=== PATIENT | male | born 1935 | race Caucasian/White ===

== ENCOUNTER 2018-10-03 18:58 | Emergency (ER) | payer OTHER ==
[2018-10-03 19:04] VITALS: BMI 29.0
[2018-10-03] MEDS ORDERED: FLUORESCEIN NA 1 EA STRIP OD ONE (20:26)
--- NOTE | 2018-10-03 20:27 | PDOC ---
History of Present Illness - General Chief Complaint: Injury Stated Complaint: STRUCK IN THE RT EYE Time Seen by Provider: 10/03/18 20:25 Past History - Past Medical History Allergies/Adverse Reactions: Allergies Allergy/AdvReac Type Severity Reaction Status Date / Time Sulfa (Sulfonamide Allergy Verified 10/03/18 21:05 Antibiotics) Home Medications: Ambulatory Orders Amlodipine Besylate 10/03/18 Aspirin [ASA -] 81 mg PO DAILY 10/03/18 Lovastatin 10/03/18 Ramipril 10/03/18 Cardiac Disorders: Yes ([place]) COPD: No HTN: Yes Hypercholesterolemia: Yes - Surgical History Abdominal Surgery: Yes (Colon resection for colon CA) Cardiac Surgery: Yes (Aortic Valve Replacement w/ Bovine) Orthopedic Surgery: Yes (L TKR) - Suicide/Smoking/Psychosocial Hx Smoking History: Never smoked Review of Systems - Review of Systems Able to Perform ROS?: Yes Comments:: In addition to that documented in the HPI above, the additional ROS was obtained : Constitutional: Denies fevers or chills ENMT: Per HPI CV: Denies chest pain Resp: Denies SOB GI: Denies vomiting or diarrhea : Denies dysuria, hematuria, or urinary frequency *Physical Exam - Vital Signs Last Vital Signs Temp Pulse Resp BP Pulse Ox 97.3 F L 65 18 142/61 99 10/03/18 18:59 10/03/18 18:59 10/03/18 18:59 10/03/18 18:59 10/03/18 18:59 - Physical Exam Comments: Constitutional: Well-developed, well-nourished elderly adult male in no acute distress but obvious discomfort. Found semi-fowlers on hospital bed. Alert and oriented x4. Answered all questions appropriately and completely. Speech was non -labored, non-pressured. Head: Normocephalic. No tenderness to area surrounding R orbit. Eyes: Blood noted in right eye. No hyphema. Two inferior corneal lacerations which fluorescein update. EOMI. R pupil 5mm and nonreactive. L pupil 3mm and reactive to light. No consensual response in left eye. Ears: Hearing grossly intact. Nose: No nasal discharge. Neck: Supple, trachea is midline. No JVD or thyromegaly. Cardiovascular / Chest: Peripheral pulses: radial pulses full. Respiratory: Breathing unlabored. Equal chest rise and fall. Neuro: Alert and oriented. Moving all four extremities spontaneously. Skin: Warm, dry, and intact. Psych: Affect: appropriate. Mood: normal. Moderate Sedation - Procedure Monitoring Vital Signs: Procedure Monitoring Vital Signs Temperature 97.3 F L 10/03/18 18:59 Pulse Rate 65 10/03/18 18:59 Respiratory Rate 18 10/03/18 18:59 Blood Pressure 142/61 10/03/18 18:59 O2 Sat by Pulse Oximetry (%) 99 10/03/18 18:59 ED Treatment Course - Medications Given in the ED: ED Medications Discontinued Medications Generic Name Dose Route Start Last Admin Trade Name Freq PRN Reason Stop Dose Admin Fluorescein Sodium 1 ea 10/03/18 20:26 10/03/18 20:45 Fluorets - OD 10/03/18 20:27 1 ea ONCE ONE Administration Tetracaine HCl 1 drop 10/03/18 20:52 10/03/18 20:45 Tetravisc 0.5% Eye Drops - OD 10/03/18 20:53 1 drop ONCE ONE Administration Medical Decision Making - Medical Decision Making *Reviewed vital signs, nursing notes, and prior visit documentation (if available). 83 y/o male with R eye injury concerning for multiple corneal lacerations and loss of pupillary function. No additional facial injuries noted. 20:50 Page sent through answering service for Dr. Simms, covering opthamologist. Awaiting call back. 21:14 Second page sent to Dr. Simms. Awaiting call back. No call back from Dr. Simms. Will discuss transfer to [facility] for emergent ophthalmologic evaluation. 21:[address] Cash ED attending at [facility]. Verbally appraised of the pts HPI, ED course, and current plan of management. Will accept the pt as an ED to ED transfer. Discussed reason for transfer with patient. Provided written consent for transfer. *DC/Admit/Observation/Transfer Diagnosis at time of Disposition: Ocular trauma of right eye Qualifiers: Encounter type: initial encounter Qualified Code(s): S05.91XA - Unspecified injury of right eye and orbit, initial encounter - Discharge Dispostion Disposition: TRANSFER ACUTE CARE/OTHER HOSP - Referrals Referrals: Daryl Almeida MD [Primary Care Provider] - - Patient Instructions - Post Discharge Activity - Transfer to Acute Care Facility Receiving Facility: [facility]. Accepting Physician:: Dr. Cash
[2018-10-03] MEDS ORDERED: FLUORESCEIN NA 1 EA STRIP ONE (20:41)
[2018-10-03] MEDS ORDERED: TETRACAINE 0.5% OPHTH SOLN 2 ML BOTTLE ONE (20:42)
[2018-10-03] MEDS ORDERED: TETRACAINE 0.5% HCL 0.6ML DROPPER.BOTTLE OD ONE (20:52)
--- NOTE | 2018-10-03 21:40 | PDOC ---
Attending Attestation - Resident Resident Name: Gerardo Finley - ED Attending Attestation I have performed the following: I have examined & evaluated the patient, The case was reviewed & discussed with the resident, I agree w/resident's findings & plan, Exceptions are as noted - HPI HPI: 10/03/18 21:37 this 83 yo male was walking the dog when the dog bit the leash and it flew into the pt's eye and he now has decreased ,blurry vision - Physicial Exam PE: 10/03/18 21:40 83 yo male p/w right eye bleeding and pain 10/03/18 22:25 head no facial abrasions or lacerations right eye : dilated pupil is not responsive to light ,there are two lacerations to the cornea ,no hyphema,sub conjunctival haemorrhage ,eomi left eye : pupil responsive to light ,eomi neck supple lungs cta b/l cvs [id number] abd flat,nontender skin warm and dry neuro axox3,moving all extremities psych appropriate 10/03/18 22:43 10/03/18 23:18 10/03/18 23:33 - Medical Decision Making 10/03/18 23:20 pt needs to be transferred for ophthalmology care and the pt requested [facility] in [place], [place]
[2018-10-03 22:29] VITALS: BP 134/77; PULSE 75; TEMP 98
== END 2018-10-03 23:30 | disposition short-term general hospital (02) ==
LOC: JER 18:58
DX: S05.31XA Ocular laceration without prolapse or loss of intraocular tissue, right eye, initial encounter (principal); W20.8XXA Other cause of strike by thrown, projected or falling object, initial encounter; Y93.K1 Activity, walking an animal; Y92.89 Other specified places as the place of occurrence of the external cause; Y99.8 Other external cause status; I25.10 Atherosclerotic heart disease of native coronary artery without angina pectoris; I10 Essential (primary) hypertension; I25.2 Old myocardial infarction; E78.00 Pure hypercholesterolemia, unspecified; Z79.82 Long term (current) use of aspirin; Z95.4 Presence of other heart-valve replacement; Z85.038 Personal history of other malignant neoplasm of large intestine; Z96.652 Presence of left artificial knee joint
CPT/HCPCS: 99283-25

== ENCOUNTER 2020-11-17 09:08 | Emergency (ER) | payer OTHER ==
[2020-11-17 10:09] VITALS: BMI 27.3
[2020-11-17 10:52] LABS: BASO % 0.6 % (0-2.0); EOS % 1.4 % (0-4.5); HEMATOCRIT 37.9 % (35.4-49); HEMOGLOBIN 12.7 GM/dL (11.7-16.9); LYMPH % 19.1 % (8-40); MCH 31.6 pg (25.7-33.7); MCHC 33.5 g/dl (32.0-35.9); MEAN CELL VOLUME 94.3 fl (80-96); MEAN PLT VOLUME 9.4 fl (7.5-11.1); MONO % 9.4 % (3.8-10.2); NEUT % 69.5 % (42.8-82.8); PLATELET COUNT 123 K/MM3 (134-434); RBC 4.01 M/mm3 (4.00-5.60); RDW 13.3 % (11.9-15.9); WHITE BLOOD COUNT 7.5 K/mm3 (4.0-10.0)
[2020-11-17 11:00] LABS: ALBUMIN 3.2 g/dl (3.4-5.0); BLOOD UREA NITROGEN 16.7 mg/dL (7-18)
[2020-11-17 11:05] LABS: BILIRUBIN,TOTAL 0.9 mg/dL (0.2-1); TOT PROT 5.8 g/dl (6.4-8.2)
[2020-11-17 11:09] LABS: CALCIUM 8.7 mg/dL (8.5-10.1); CREATININE 1.2 mg/dL (0.55-1.3)
[2020-11-17 12:09] LABS: URINE APPEARANCE CLEAR; URINE BILIRUBIN NEGATIVE (NEGATIVE); URINE COLOR DK YELLOW; URINE GLUCOSE (UA) NEGATIVE (NEGATIVE); URINE KETONE TRACE (NEGATIVE); URINE LEUK ESTERASE NEGATIVE (NEGATIVE); URINE NITRITE NEGATIVE (NEGATIVE); URINE PROTEIN TRACE (NEGATIVE)
[2020-11-17 15:41] VITALS: TEMP 98.8
[2020-11-17 20:20] VITALS: BP 151/66; PULSE 59
== END 2020-11-17 20:16 | disposition short-term general hospital (02) ==
LOC: JER 09:08
DX: G93.89 Other specified disorders of brain (principal)
CPT/HCPCS: 36415; 70450-TC; 70553-TC; 71045-TC-FY; 72170-TC-FY; 80053; 80307; 81003; 82550; 84443; 84484; 85025; 87086; 87186; 93005; 93010; 99285-25; A9579; C9803; U0003; U0005